=== PATIENT | male | born 1950 | race American Indian/Alaskan Native ===

== ENCOUNTER 2017-02-10 12:16 | Outpatient (CLI) | payer MEDICARE ==
--- NOTE | 2017-02-10 13:21 | XRay Report ---
Chest 2 views. History: Persistent cough. Findings: The heart and pulmonary vessels are normal. The lungs are free of acute infiltrates. Small granulomas are noted in the upper lobes bilaterally. No focal infiltrates. No pleural fluid. Impression: No acute findings.
== END 2017-02-10 12:17 | disposition home or self-care (01) ==
LOC: XRAY 12:16
PROVIDERS: ATTEND Internal Medicine Nephrology
DX: J84.10 Pulmonary fibrosis, unspecified (principal)
CPT/HCPCS: 71020

== ENCOUNTER 2017-06-28 07:12 | Outpatient (CLI) | payer MEDICARE ==
--- NOTE | 2017-06-28 08:15 | Cat Scan Report ---
CT CHEST WITHOUT CONTRAST: HISTORY: Pulmonary nodule. TECHNIQUE: Helical CT with sagittal and coronal reformatted images. FINDINGS: No IV contrast was administered due to the patient's renal function. Patient had dialysis scheduled for tomorrow. The 3 tiny calcified nodules in the upper lobes are unchanged since 03/02/13 exam. These are consistent with granulomas. There is no suspicious pulmonary nodule or mass. The lungs are clear otherwise. No evidence for infiltrate, pleural effusion or pneumothorax. No parenchymal lung disease is appreciated. There is borderline to mild cardiomegaly. No pericardial effusion. The thyroid gland, tracheobronchial tree, esophagus and mediastinal vessels are within normal limits. There is moderate thoracic spondylosis. No fracture or suspicious bony lesion. Limited images of the upper abdomen demonstrate mild bilateral renal atrophy and nonobstructing left renal stones. 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 No suspicious pulmonary nodule. Renal atrophy and nonobstructing left renal stones.
== END 2017-06-28 07:13 | disposition home or self-care (01) ==
LOC: CT 07:12
PROVIDERS: ATTEND Internal Medicine Nephrology
DX: N20.0 Calculus of kidney (principal); R91.1 Solitary pulmonary nodule; R63.4 Abnormal weight loss; M47.894 Other spondylosis, thoracic region; N26.1 Atrophy of kidney (terminal); I10 Essential (primary) hypertension
CPT/HCPCS: 71250

== ENCOUNTER 2017-07-19 13:29 | Outpatient (CLI) | payer MEDICARE ==
--- NOTE | 2017-07-19 13:55 | XRay Report ---
CHEST XRAY, 2 VIEWS: History: Cough. Findings: There is coarsening of the perihilar markings. The lungs are clear and well expanded. The pleural spaces are clear. The cardiac silhouette and pulmonary vasculature are within normal limits for technique. The osseous structures appear within normal limits. IMPRESSION: Findings consistent with bronchitis.
== END 2017-07-19 13:30 | disposition home or self-care (01) ==
LOC: XRAY 13:29
PROVIDERS: ATTEND Internal Medicine Nephrology
DX: R05 Cough (principal); I10 Essential (primary) hypertension
CPT/HCPCS: 71020